=== PATIENT | male | born 1965 | race Caucasian/White ===

== ENCOUNTER → 2017-04-11 | Outpatient (CLI) | payer OTHER ==
[~2017-04-11] MED LIST: ACET500 PO; ASPI500 PO; ATEN25 PO; IBUP200 PO; NAPR550 PO; OXYACE5T PO; RXNAPNA550 PO
[2017-04-13 11:03] LABS: Antinuclear Antibody Screen Negative (Negative)
[2017-04-15 08:03] LABS: RNP/SM Ab IgG <0.2 AI (<1.0)
[2017-04-15 08:43] LABS: C3 104 mg/dL (90-200); C4 23.6 mg/dL (15.0-55.0)
== END | disposition home or self-care (01) ==
LOC: LAB 17:32
PROVIDERS: Nurse Practitioner Family
DX: M25.50 Pain in unspecified joint (principal)
CPT/HCPCS: 86038; 86140; 86160; 86225; 86235; 86430

== ENCOUNTER 2018-05-05 09:32 | Day surgery (SDC) | payer OTHER ==
[~2018-05-05] VITALS: Ht 177.8 cm; Wt 84.4 kg
[2018-05-05] MEDS ORDERED: Prozac20 MG (10:22)
--- NOTE | 2018-05-05 11:55 | NUR ---
05/05/18 1155 Anayeli Lovell GROUNDING PAD ON RIGHT FLANK
== END 2018-05-05 12:33 | disposition home or self-care (01) ==
LOC: ORSCSDS 09:32
PROVIDERS: Internal Medicine Gastroenterology
PROC: 0DBM8ZX Excision of Descending Colon, Via Natural or Artificial Opening Endoscopic, Diagnostic (ICD-10-PCS; principal; 2018-05-05 11:15)
PROC: 0DBP8ZX Excision of Rectum, Via Natural or Artificial Opening Endoscopic, Diagnostic (ICD-10-PCS; principal; 2018-05-05 11:15)
PROC: 0DBL8ZX Excision of Transverse Colon, Via Natural or Artificial Opening Endoscopic, Diagnostic (ICD-10-PCS; principal; 2018-05-05 11:15)
PROC: 0DBN8ZX Excision of Sigmoid Colon, Via Natural or Artificial Opening Endoscopic, Diagnostic (ICD-10-PCS; principal; 2018-05-05 11:15)
PROC: 0DBH8ZX Excision of Cecum, Via Natural or Artificial Opening Endoscopic, Diagnostic (ICD-10-PCS; principal; 2018-05-05 11:15)
DX: Z12.11 Encounter for screening for malignant neoplasm of colon (principal); D12.3 Benign neoplasm of transverse colon; D12.0 Benign neoplasm of cecum; D12.4 Benign neoplasm of descending colon; D12.8 Benign neoplasm of rectum; K63.5 Polyp of colon; K57.30 Diverticulosis of large intestine without perforation or abscess without bleeding; K64.8 Other hemorrhoids; F17.210 Nicotine dependence, cigarettes, uncomplicated; I10 Essential (primary) hypertension; K21.9 Gastro-esophageal reflux disease without esophagitis; E78.5 Hyperlipidemia, unspecified; Z79.899 Other long term (current) drug therapy
CPT/HCPCS: 88305; J2405; J7120

== ENCOUNTER 2018-06-06 11:47 | Emergency (ER) | payer OTHER ==
[~2018-06-06] VITALS: Ht 177.8 cm; Wt 86.2 kg
[~2018-06-06 11:47] MED LIST changes: +Prozac20 MG
[2018-06-06] MEDS ORDERED: Tasprin325 MG PO (12:10)
[2018-06-06] MEDS ORDERED: Naprosyn500 MG PO (12:45)
== END 2018-06-06 13:08 | disposition home or self-care (01) ==
LOC: ER 11:47
DX: M25.562 Pain in left knee (principal); Z79.82 Long term (current) use of aspirin; F41.9 Anxiety disorder, unspecified; F17.210 Nicotine dependence, cigarettes, uncomplicated
CPT/HCPCS: 73564; 99283-25

== ENCOUNTER 2019-05-11 07:26 | Day surgery (SDC) | payer OTHER ==
[~2019-05-11] VITALS: Ht 177.8 cm; Wt 85.2 kg
[~2019-05-11 07:26] MED LIST changes: +MELO7.5 PO; +MEN 50 PLUS MU1 EACH PO; +Naprosyn500 MG PO; +Prozac20 MG PO; +Tasprin325 MG PO; +Vitamin D2000 UNIT PO
--- NOTE | 2019-05-11 08:05 | NUR ---
05/11/19 0805 Nereyda Oconnell 1 IV MISSIN RW BY [facility] WOULD THREAD PT STATED IT WAS PAINFUL 1 GOOD IV IN RH BY [facility] PT TOW
--- NOTE | 2019-05-11 09:58 | NUR ---
05/11/19 0958 Jolly Lynn PT. REFUSED ANYTHING TO EAT. PT. WAITING IN OK FOR HIS RIDE HOME. REFUSED WANTING A WARM BLANKET OR ANYTHING TO DRINK. PT. DID WANT SOME COOKIES, COOKIES GIVEN TO PT.
== END 2019-05-11 09:45 | disposition home or self-care (01) ==
LOC: ORSCSDS 07:26
PROVIDERS: Internal Medicine Gastroenterology
PROC: 0DBM8ZX Excision of Descending Colon, Via Natural or Artificial Opening Endoscopic, Diagnostic (ICD-10-PCS; principal; 2019-05-11 08:45)
PROC: 0DBN8ZX Excision of Sigmoid Colon, Via Natural or Artificial Opening Endoscopic, Diagnostic (ICD-10-PCS; principal; 2019-05-11 08:45)
PROC: 0DBL8ZX Excision of Transverse Colon, Via Natural or Artificial Opening Endoscopic, Diagnostic (ICD-10-PCS; principal; 2019-05-11 08:45)
DX: Z86.010 Personal history of colon polyps (principal); K63.5 Polyp of colon; D12.4 Benign neoplasm of descending colon; K57.30 Diverticulosis of large intestine without perforation or abscess without bleeding; K64.8 Other hemorrhoids; K64.4 Residual hemorrhoidal skin tags; I48.92 Unspecified atrial flutter; K21.9 Gastro-esophageal reflux disease without esophagitis; I10 Essential (primary) hypertension; F17.210 Nicotine dependence, cigarettes, uncomplicated; E78.5 Hyperlipidemia, unspecified; Z79.899 Other long term (current) drug therapy
CPT/HCPCS: 88305; J2704; J7120

== ENCOUNTER 2021-01-30 08:15 | Day surgery (SDC) | payer OTHER ==
[~2021-01-30] VITALS: Ht 177.8 cm; Wt 89.3 kg
== END 2021-01-30 10:40 | disposition home or self-care (01) ==
LOC: ORSCSDS 08:15
DX: Z12.11 Encounter for screening for malignant neoplasm of colon (principal); Z86.010 Personal history of colon polyps; D12.3 Benign neoplasm of transverse colon; K63.5 Polyp of colon; K57.30 Diverticulosis of large intestine without perforation or abscess without bleeding; K64.8 Other hemorrhoids; K21.9 Gastro-esophageal reflux disease without esophagitis; Z79.899 Other long term (current) drug therapy
CPT/HCPCS: 88305; J2704; J7120

== ENCOUNTER → 2023-11-01 | Outpatient (CLI) | payer OTHER ==
[~2023-11-01] MED LIST changes: +TRAM50
[2023-11-01 16:44] LABS: BASOPHILS ABSOLUTE AUTO 0.01 K/mm3 (0.00-0.23); BASOPHILS PERCENT AUTO 0 % (0-2); EOSINOPHILS ABSOLUTE AUTO 0.08 K/mm3 (0.00-0.68); EOSINOPHILS PERCENT AUTO 1 % (0-6); Hematocrit 44.8 % (37.0-53.0); IMMATURE GRAN ABSOLUTE AUTO 0.03 K/mm3 (0.00-0.10); IMMATURE GRAN PERCENT AUTO 1 % (0-1); LYMPHOCYTES ABSOLUTE AUTO 1.48 K/mm3 (0.84-5.20); LYMPHOCYTES PERCENT AUTO 23 % (21-46); MONOCYTES PERCENT AUTO 8 % (4-13); Mean Corpuscular HGB 32.4 pg (26.0-34.0); Mean Corpuscular HGB Conc 35.7 g/dL (31.5-36.5); Mean Corpuscular Volume 91 fL (80-100); Mean Platelet Volume 10.1 fL (9.1-12.4); NEUTROPHILS ABSOLUTE AUTO 4.22 K/mm3 (1.96-9.15); NEUTROPHILS PERCENT AUTO 67 % (41-73); Platelet Count 235 K/mm3 (150-400); RDW Coefficient Variation 11.9 % (11.7-14.2); RDW Standard Deviation 39.1 fL (35.1-46.3); Red Blood Cell Count 4.94 M/mm3 (4.30-5.90); White Blood Cell Count 6.32 K/mm3 (4.00-11.30)
[2023-11-01 16:57] LABS: Albumin, Blood 4.1 g/dL (3.4-5.0); Albumin/Globulin Ratio 1.2 (0.8-1.8); Bilirubin, Total 0.9 mg/dL (0.1-1.0); Calcium, Blood 9.7 mg/dL (8.5-10.1); Creatinine, Blood 0.75 mg/dL (0.60-1.20); Globulin, Blood 3.3 g/dL (2.2-4.0); Total Protein, Blood 7.4 g/dL (6.4-8.2)
== END ==
LOC: LAB SHORT 16:40 → LAB 16:40
PROVIDERS: Physician Assistant
DX: R10.9 Unspecified abdominal pain (principal)
CPT/HCPCS: 80053; 83690; 85025